=== PATIENT | female | born 1955 | race Caucasian/White ===

== ENCOUNTER 2018-09-24 17:07 | Inpatient (IN) | payer OTHER ==
[~2018-09-24] VITALS: Ht 157.5 cm; Wt 82.6 kg
--- NOTE | 2018-09-24 17:21 | NUR ---
RIGHT SIDED CHEST PAIN X 40 MINUTES ASSOCIATED W/ SOB. PT SATTING AT 98% ON RA. AOX4, AMB, VSS. NO ACUTE DISTRESS NOTED. SKIN WARM TO TOUCH, DRY, INTACT. HOOKED TO MONITIOR AND MADE COMFORTABLE. READY FOR EVAL.
[2018-09-24] MEDS ORDERED: NITROGLYCERIN PACKET 1 GM PACKET ONE (18:23)
[2018-09-24] MEDS ORDERED: ASPIRIN 325 MG TABLET ONE (18:24)
[2018-09-24] MEDS ORDERED: NITROGLYCERIN PACKET 1 GM PACKET TD ONE (18:30)
[2018-09-24] MEDS ORDERED: ASPIRIN 325 MG TABLET PO ONE (18:30)
[2018-09-24 18:35] LABS: BASOPHILS # (AUTO) 0.1 /CMM (0.0-0.2); BASOPHILS % (AUTO) 0.9 % (0.0-2.0); EOSINOPHILS % (AUTO) 0.4 % (0.0-6.0); HEMATOCRIT 43 % (33-45); LYMPHOCYTES # (AUTO) 2.7 /CMM (0.8-4.8); LYMPHOCYTES % (AUTO) 25.1 % (20.0-44.0); MEAN CORPUSCULAR HGB CONC 35 g/dl (31.0-36.0); MEAN CORPUSCULAR VOLUME 97 fL (82-100); MONOCYTES # (AUTO) 0.6 /CMM (0.1-1.30); MONOCYTES % (AUTO) 5.8 % (2.0-12.0); NEUTROPHILS # (AUTO) 7.2 /CMM (1.8-8.9); NEUTROPHILS % (AUTO) 67.8 % (43.0-81.0); PLATELET COUNT (AUTO) 232 /CMM (150-450); RED BLOOD CELL COUNT(AUTO) 4.47 MIL/uL (4.0-5.2); WHITE BLOOD COUNT (AUTO) 10.7 K/uL (4.3-11.0)
[2018-09-24 18:44] LABS: CALCIUM, SERUM 8.8 mg/dL (8.5-10.1); CARBON DIOXIDE 32 mmol/L (21-32); CHLORIDE 105 mmol/L (98-107); CREATININE 0.8 mg/dL (0.6-1.3); GLUCOSE 105 mg/dL (74-106); POTASSIUM 4.4 mmol/L (3.5-5.1); SODIUM SERUM 141 mmol/L (136-145); UREA NITROGEN, BLOOD 17 mg/dL (7-18)
[2018-09-24 18:56] LABS: ALANINE AMINOTRANSFERASE 90 U/L (12-78); ALBUMIN 3.9 g/dL (3.4-5.0); ALKALINE PHOSPHATASE 89 U/L (46-116); ASPARTATE AMINOTRANSFERASE 100 U/L (15-37); B-TYPE NATRIURETIC PEPTIDE 19 PG/ML (0-125); BILIRUBIN,DIRECT 0.4 mg/dL (0.0-0.2); BILIRUBIN,TOTAL 0.9 mg/dL (0.2-1.0); TOTAL PROTEIN, SERUM 7.2 g/dL (6.4-8.2)
[2018-09-24 19:03] LABS: D-DIMER 0.19 mg/L(FEU (0.17-0.50)
--- NOTE | 2018-09-24 19:04 | NUR ---
Patient is resting comfortably in bed with eyes closed. Easily aroused. VSS
--- NOTE | 2018-09-24 19:23 | NUR ---
TURNED IN MOVE SHEET
--- NOTE | 2018-09-24 19:58 | NUR ---
TELE 308-9
--- NOTE | 2018-09-24 20:24 | NUR ---
REPORT GIVEN TO RN FOR 308-1 TELE
[2018-09-24 20:55] VITALS: BP 104/67
--- NOTE | 2018-09-24 20:55 | NUR ---
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
[2018-09-24] MEDS ORDERED: MAG HYDROX/AL HYDROX/SIMETH 30 ML UDC PO PRN (21:00)
[2018-09-24] MEDS ORDERED: ACETAMINOPHEN 325 MG TABLET PO PRN (21:00)
[2018-09-24] MEDS ORDERED: ZOLPIDEM TARTRATE 5 MG TABLET PO PRN (21:00)
[2018-09-24] MEDS ORDERED: MAGNESIUM HYDROXIDE 30 ML UDC PO PRN (21:00)
[2018-09-24] MEDS ORDERED: ALBUTEROL FS 2.5 MG/0.5 ML VIAL.NEB NEB PRN (21:00)
[2018-09-24] MEDS ORDERED: Z GUARD REMEDY 2 OZ OINT TP PRN (21:00)
[2018-09-24] MEDS ORDERED: ONDANSETRON HCL/PF 4 MG/2 ML VIAL IVP PRN (21:00)
[2018-09-24] MEDS ORDERED: NITROGLYCERIN 0.4 MG/TAB BOTTLE SL PRN (21:00)
--- NOTE | 2018-09-24 21:00 | NUR ---
PT TRANSFERRED TO FLOOR VIA [facility]
[2018-09-24 21:48] VITALS: BP 104/67
--- NOTE | 2018-09-24 22:00 | NUR ---
MS RN NOTES PATIENT WANTS TO GO DOWN TO SMOKE.EXPLAINED RISK OF SMOKING WHEN SHE CAME FOR CHEST PAIN,PATIENT UNDERSTAND.CLAIMED SHE'S HUNGRY,OFFERS TUNA SANDWICH AND APPLE JUICE,TAKEN WELL.NO VOMITING NOTED.
[2018-09-24] MEDS: IV NS 0.9% 1,000 ML IV PRN (22:39)
--- NOTE | 2018-09-24 22:39 | NUR ---
ELECTROPLATER NOTES STARTED ON IV NS AT 75ML/HR RATE ORDERED
[2018-09-24] MEDS: HYDROCODONE/APAP 5/325MG 1 EACH TABLET PO PRN (22:49)
--- NOTE | 2018-09-24 22:49 | NUR ---
MS RN NOTES C/O PAIN ON BACK OF HER NECK 6/10 ON PAIN SCALE.MEDICATED WITH NORCO 5/325MG,1 TAB PO ORDERED.
[2018-09-25 00:07] VITALS: BP 118/69
[2018-09-25 04:04] VITALS: BP 118/71
--- NOTE | 2018-09-25 06:16 | NUR ---
DIRECTOR INSTRUMENTATION NOTES SR 74 ON TELE MONITOR.DENIES CHEST PAIN NO N/V NOTED/NECK PAIN IMPROVED FORM NORCO.INSTRUCTED BREAKFAST TO BE HELD 'TILL SEEN BY DR RASCON FOR CARDIO CONSULT.CALL LIGHT IN REACH,NEEDS ATTENDED.WILL ENDORSE TO DAY NURSE FOR BATSHEVA.
[2018-09-25 06:44] LABS: BASOPHILS % (AUTO) 0.6 % (0.0-2.0); CALCIUM, SERUM 8.3 mg/dL (8.5-10.1); CREATININE 0.7 mg/dL (0.6-1.3); HEMATOCRIT 40 % (33-45); HEMOGLOBIN 13.7 g/dL (11.5-14.8); LYMPHOCYTES # (AUTO) 2.7 /CMM (0.8-4.8); LYMPHOCYTES % (AUTO) 45.5 % (20.0-44.0); MAGNESIUM 1.8 mg/dL (1.8-2.4); MEAN CORPUSCULAR HGB CONC 35 g/dl (31.0-36.0); MEAN CORPUSCULAR VOLUME 97 fL (82-100); MONOCYTES # (AUTO) 0.4 /CMM (0.1-1.30); MONOCYTES % (AUTO) 7.5 % (2.0-12.0); NEUTROPHILS # (AUTO) 2.7 /CMM (1.8-8.9); NEUTROPHILS % (AUTO) 45.4 % (43.0-81.0); PHOSPHORUS 4.4 mg/dL (2.5-4.9); PLATELET COUNT (AUTO) 226 /CMM (150-450); RED BLOOD CELL COUNT(AUTO) 4.09 MIL/uL (4.0-5.2); WHITE BLOOD COUNT (AUTO) 5.9 K/uL (4.3-11.0)
[2018-09-25 06:54] LABS: THYROID STIMULATING HORMONE 2.085 uIU/mL (0.358-3.74)
--- NOTE | 2018-09-25 07:30 | NUR ---
Tele/RN - Assessment Patient awake, A/O x 4, no complaints overnight, denies chest pain at this time, no apparent distress noted, afebrile, stable on room air. Tele shows SR, pending cardiac consult, placed on NPO for now for possible cardiac testing. IVF NS at 75 ml/hr infusing well on the RAC with no signs of infiltration. Labs reviewed, WNL. Skin is intact. Patient is ambulatory with steady gait. Patient educated on plan of care. Will continue with current medical management.
[2018-09-25] MEDS: PANTOPRAZOLE 40 MG TABLET.DR PO SCH (07:49)
[2018-09-25 08:00] VITALS: BP 110/70
[2018-09-25] MEDS: ASPIRIN 81 MG TAB.CHEW PO SCH (08:17)
[2018-09-25] MEDS: NICOTINE PATCH (14MG) 14 MG PATCH.TD24 TD SCH (08:17)
--- NOTE | 2018-09-25 09:05 | NUR ---
Tele/RN - Cardiac consult Seen and examined by kia Marie to give breakfast, dc tele monitoring, transfer to med-surg.
[2018-09-25] MEDS: ATORVASTATIN 10 MG TABLET PO SCH (09:32)
[2018-09-25] MEDS: METOPROLOL TARTRATE 50 MG TABLET PO SCH ×2 (11:45→17:07)
[2018-09-25] MEDS: IV NS 0.9% 1,000 ML IV PRN ×2 (14:54→22:22)
[2018-09-25 16:00] VITALS: BP 138/58
--- NOTE | 2018-09-25 18:19 | NUR ---
MS/RN - End of shift summary No significant change in condition seen, denies chest pain, not in any form of distress. Will endorse to night nurse accordingly.
--- NOTE | 2018-09-25 19:25 | NUR ---
RN OPEN NOTES RECEIVED PATIENT AWAKE IN BED WITH FAMILY AT BEDSIDE. A/O X4. NO SIGNS OF DISTRESS OR DISCOMFORT. BREATHING EVEN AND UNLABORED. DENIES ANY CHEST PAIN. IV ACCESS IN RAC, PATENT AND INTACT, NO SIGNS OF REDNESS OR INFILTRATION. PATIENT REFUSING IVF'S X3 AT THIS TIME. STATES SHES DRINKING ENOUGH FLUIDS ORALLY. BED IN LOW LOCKED POSITION WITH SIDE RAILS X2. CALL LIGHT WITHIN REACH. WILL CONTINUE TO MONITOR.
[2018-09-25 20:00] VITALS: BP 98/61
[2018-09-25] MEDS: HYDROCODONE/APAP 5/325MG 1 EACH TABLET PO PRN (20:38)
[2018-09-25] MEDS: MORPHINE SULFATE INJ 2 MG/ML DISP.SYRIN IV PRN (22:23)
--- NOTE | 2018-09-25 22:23 | NUR ---
RN NOTES ADMINISTERED MORPHINE 2MG ORDERED AT PATIENT REQUEST FOR NECK, HEAD AND MOUTH PAIN 5/10. VSS. WILL CONTINUE TO MONITOR.
[2018-09-26] MEDS: METOPROLOL TARTRATE 50 MG TABLET PO SCH ×4 (06:00→18:00)
--- NOTE | 2018-09-26 06:49 | NUR ---
RN CLOSING NOTES PATIENT RESTING IN BED, EASILY AROUSABLE. . A/O X4. NO SIGNS OF DISTRESS OR DISCOMFORT. BREATHING EVEN AND UNLABORED. DENIES ANY CHEST PAIN. IV ACCESS IN RAC, PATENT AND INTACT, NO SIGNS OF REDNESS OR INFILTRATION. ALL NEEDS MET. NO SIGNIFICANT CHANGES THROUGH THE NIGHT. BED IN LOW LOCKED POSITION WITH SIDE RAILS X2. CALL LIGHT WITHIN REACH. WILL ENDORSE TO AM SHIFT FOR BATSHEVA.
--- NOTE | 2018-09-26 07:29 | NUR ---
MS RN OPENING NOTES RECEIVED PT SITTING UP IN BED. A/O X4, AFEBRILE. RESPIRATIONS ARE EVEN AND UNLABORED, NOT IN ANY ACUTE DISTRESS NOTED. PT DENIES ANY PAIN AT THIS TIME, NO C/O SOB, N/V. IV SITE RAC INTACT, NO INFILTRATION NOTED. DRESSING KEPT CLEAN AND DRY. INSTRUCTED PT TO USE CALL LIGHT WHEN ASSISTANCE IS NEEDED, CALL LIGHT IS LEFT WITHIN REACH. WILL MONITOR THROUGHOUT SHIFT FOR CONTINUITY OF CARE.
[2018-09-26 08:00] VITALS: BP_SYST 111; BP_SYST 137; BP_DIAS 68
[2018-09-26] MEDS: ASPIRIN 81 MG TAB.CHEW PO SCH (08:17)
[2018-09-26] MEDS: NICOTINE PATCH (14MG) 14 MG PATCH.TD24 TD SCH (08:17)
[2018-09-26] MEDS: ATORVASTATIN 10 MG TABLET PO SCH (08:17)
[2018-09-26] MEDS: PANTOPRAZOLE 40 MG TABLET.DR PO SCH (08:17)
--- NOTE | 2018-09-26 10:15 | NUR ---
MS RN NOTES-- CALLED RADIOLOGY FOR [facility] SCHEDULE AND STATED "AROUND 3PM." PT IS AWARE.
[2018-09-26] MEDS: MORPHINE SULFATE INJ 2 MG/ML DISP.SYRIN IV PRN (12:52)
[2018-09-26] MEDS ORDERED: IV NS 0.9% 500 ML IV PRN (15:30)
[2018-09-26] MEDS ORDERED: NITROGLYCERIN 4.9 GM SPRAY SL ONE (15:30)
[2018-09-26] MEDS ORDERED: METOPROLOL TARTRATE INJ 5 MG/5 ML AMPUL IVP ONE (15:30)
[2018-09-26] MEDS ORDERED: METOPROLOL TARTRATE INJ 5 MG/5 ML AMPUL ONE (15:44)
[2018-09-26] MEDS ORDERED: IOHEXOL-350 100 ML VIAL IV ONE (15:48)
--- NOTE | 2018-09-26 15:48 | NUR ---
MS CHIN NOTES-- PT P/U BY RADIOLOGY FOR [facility] IN STABLE CONDITION VIA W/C.
[2018-09-26 16:00] VITALS: BP 106/58
[2018-09-26] MEDS ORDERED: IV NS 0.9% 500 ML IV ONE (16:06)
--- NOTE | 2018-09-26 16:35 | NUR ---
ICU/RN: S/P CTA; pt tolerated procedure well. No metoprolol doses given; HR within parameters. Nitroglycerin administered as ordered per protocol. Assisted pt to bathroom and bed. Fall precautions observed. Bedside report given to primary RN for BATSHEVA.
[2018-09-26] MEDS: HYDROCODONE/APAP 5/325MG 1 EACH TABLET PO PRN ×2 (16:38→22:28)
--- NOTE | 2018-09-26 16:43 | NUR ---
MS RN NOTES-- PT CAME BACK FROM [facility] IN STABLE CONDITION VIA W/C. NO NEW SKIN ISSUES NOTED. AWAITING RESULTS TO BE READ. PT MADE AWARE.
--- NOTE | 2018-09-26 18:06 | NUR ---
MS GIUSEPPE NOTES-- PASSED BY PT'S ROOM AND PT SAID "HELP." PT WAS FOUND ON HER KNEES IN FRONT OF THE BATHROOM SINK. ASKED PT WHAT HAD HAPPENED, PT STATED "I WENT TO USE TO THE BATHROOM AND I FELT A LITTLE DIZZY AND I LOWERED MYSELF TO THE GROUND TO PREVENT MYSELF FROM FALLING." ASSISTED PT TO BED, PT ABLE TO AMBULATE. SKIN REMAINS INTACT, DENIES ANY PAIN. PT STATED "I JUST FELT DIZZY, I DIDNT FALL. I WANTED TO PREVENT MYSELF FROM FALLING SO I LOWERED MYSELF ON MY KNEES." PT IN BED WITH LIGHTS OFF AND RESTING AT THIS TIME. CHARGE NURSE NOTIFIED. Addendum: 09/26/18 at 1826 by SAI GREENBERG RN BP 118/67 HR 53
[2018-09-26 18:25] VITALS: BP 118/67
--- NOTE | 2018-09-26 18:52 | NUR ---
MS RN CLOSING NOTES ALL DUE MEDS GIVEN, NEEDS MET AND RENDERED. PT IS A/O X4, AFEBRILE. RESPIRATIONS ARE EVEN AND UNLABORED, NOT IN ANY ACUTE DISTRESS NOTED. PT DENIES ANY PAIN AT THIS TIME, NO C/O SOB, N/V. IV SITE TO RAC INTACT, NO INFILTRATION NOTED. DRESSING KEPT CLEAN AND DRY. DENIES ANY DIZZINESS AT THIS TIME. REMINDED PT TO USE CALL LIGHT WHEN ASSISTANCE IS NEEDED, CALL LIGHT IS LEFT WITHIN REACH. WILL ENDORSE TO NEXT SHIFT FOR CONTINUITY OF CARE.
--- NOTE | 2018-09-26 19:10 | NUR ---
MS RN NOTES RECEIVED PT IN BED AWAKE AND ABLE TO MAKE NEEDS KNOWN WITH FAMILY AT BEDSIDE. PT A/O X4. RESPIRATIONS EVEN AND UNLABORED WITH NO S/S OF ACUTE DISTRESS OR SOB NOTED. PT DENIES PAIN AT THIS TIME. IV IN RAC #20G PATENT AND INTACT RUNNING NS@75ML/HR. BED IN LOWEST LOCKED POSITION WITH SIDE RAILS UP X3. CALL LIGHT WITHIN REACH. WILL CONTINUE TO MONITOR.
[2018-09-26 20:00] VITALS: BP 118/71
[2018-09-27] MEDS: METOPROLOL TARTRATE 50 MG TABLET PO SCH ×3 (00:09→12:19)
[2018-09-27] MEDS: HYDROCODONE/APAP 5/325MG 1 EACH TABLET PO PRN (03:56)
--- NOTE | 2018-09-27 07:26 | NUR ---
MS RN NOTES PT IN BED ASLEEP BUT EASILY AWOKEN VERBALLY OR BY TOUCH. PT A/O X4 AND ABLE TO MAKE NEEDS KNOWN. RESPIRATIONS EVEN AND UNLABORED WITH NO S/S OF ACUTE DISTRESS OR SOB NOTED THROUGHOUT SHIFT. PT DENIES PAIN AT THIS TIME. IV IN RAC #20G PATENT AND INTACT RUNNING NS@75ML/HR. BED IN LOWEST LOCKED POSITION WITH SIDE RAILS UP X2. CALL LIGHT WITHIN REACH. WILL ENDORSE TO ONCOMING NURSE FOR BATSHEVA.
--- NOTE | 2018-09-27 07:45 | NUR ---
M/S RN OPENING NOTES RECEIVED PATIENT ON BED, A/OX4 AND ABLE TO MAKE NEEDS KNOWN. RESPONSIVE TO ALL STIMULI. RESPIRATION EVEN AND NON LABORED WITH NO ACUTE RESPIRATORY DISTRESS. ABDOMEN SOFT AND NON DISTENDED WITH ACTIVE BOWEL SOUNDS, CONTINENT B&B WITH BRP. SKIN WARM TO TOUCH AND DRY. DENIES PAIN AND DISCOMFORT. IV SITE AT RIGHT AC WITH NO S/SX OF INFILTRATION. NS RUNNING AT 75 ML/HR. GOAL FOR DISCHARGE TODAY PATIENT STATED. ALL CONCERNS ADDRESSED. PLACED CALL LIGHT WITHIN REACH FOR SAFETY. WILL CONTINUE TO EVALUATE CARE.
[2018-09-27 08:00] VITALS: BP 98/44
[2018-09-27] MEDS: NICOTINE PATCH (14MG) 14 MG PATCH.TD24 TD SCH (08:08)
[2018-09-27] MEDS: ASPIRIN 81 MG TAB.CHEW PO SCH (08:08)
[2018-09-27] MEDS: PANTOPRAZOLE 40 MG TABLET.DR PO SCH (08:08)
[2018-09-27] MEDS: ATORVASTATIN 10 MG TABLET PO SCH (08:08)
[2018-09-27 09:11] LABS: ALBUMIN 3.3 g/dL (3.4-5.0); BILIRUBIN,TOTAL 0.4 mg/dL (0.2-1.0); CALCIUM, SERUM 8.4 mg/dL (8.5-10.1); CREATININE 0.8 mg/dL (0.6-1.3); TOTAL PROTEIN, SERUM 6.3 g/dL (6.4-8.2)
[2018-09-27 12:19] VITALS: BP 136/49
[2018-09-27] MEDS ORDERED: ASPI-1169 PO (12:20)
[2018-09-27] MEDS ORDERED: LOSA50TA3 PO (12:20)
[2018-09-27] MEDS ORDERED: ATOR10TA PO (12:20)
--- NOTE | 2018-09-27 13:05 | NUR ---
M/S MEDICAL PATHOLOGIST NOTES PATIENT DISCHARGED TO HOME WITH STABLE CONDITION. EXIT CARE PROVIDED WITH PRESCRIPTION GIVEN ORDERED. REMAINED A/0 X 4 AND ABLE TO MAKE NEEDS KNOWN. ASSESSED NO ACUTE RESPIRATORY DISTRESS. SKIN REMAINED INTACT AND DRY, REFUSED PICTURES TO BE TAKEN PER HOSPITAL POLICY STATED " THERE'S NOTING NEW ANYWAY". ADVISED REASON FOR PROCEDURE AN STILL REFUSED. IV SITE TAKEN OFF AND ID BACK AND VERBALIZED UNDERSTANDING. ALL CONCERNS ADDRESSED. WHEELED BY CHANTEL STALLINGS TO PRIVATE CAR WITH ROOM MATE SAFELY.
== END 2018-09-27 13:10 | disposition home or self-care (01) | DRG 203 ==
LOC: ER 17:16 → TELE 20:27 → MED 09-25 10:15
PROVIDERS: ADMIT Nurse Practitioner Acute Care; ATTEND Nurse Practitioner Acute Care
DX: M94.0 Chondrocostal junction syndrome [Tietze] (principal); E66.9 Obesity, unspecified; F41.0 Panic disorder [episodic paroxysmal anxiety]; J45.909 Unspecified asthma, uncomplicated; K21.9 Gastro-esophageal reflux disease without esophagitis; Z68.34 Body mass index [BMI] 34.0-34.9, adult; F17.200 Nicotine dependence, unspecified, uncomplicated; Z90.49 Acquired absence of other specified parts of digestive tract; F41.9 Anxiety disorder, unspecified
CPT/HCPCS: 36415; 71045-TC; 75574; 76700-TC; 80048-TC; 80053-TC; 80061-TC; 80076-TC; 83735-TC; 83880; 84100-TC; 84443-TC; 84484-TC; 85025-TC; 85378-TC; 85730-TC; 87081-TC; 93307-TC; G0378; J2270; J3490; J7030; J7040; Q9967

== ENCOUNTER 2018-12-14 23:40 | Emergency (ER) | payer OTHER ==
[~2018-12-14] VITALS: Ht 160 cm; Wt 82.6 kg
[~2018-12-14 23:40] MED LIST: ASPI-1169 PO; ATOR10TA PO; LOSA50TA3 PO
--- NOTE | 2018-12-15 02:19 | NUR ---
BIBSELF FROM HOME. TO ER BED 10. AAOX4. NAD NOTED, BREATHING EVEN AND UNLABORED. AMBUALTORY. C.O VAGINAL PAIN AND LOWER ABD PAIN X 1 WEEK. PAIN IS 7/10 CRAMPING OCCASSIONAL SHARP THROBBING PAIN. PT REPORTS BROWNISH THINS NO ODOR DISCHARGE. PT REPORTS USING MONISTAT BUT NO RELIEF. URINE COLLECTED FROM PT. AND SENT TO LAB. AWAITING MD FOR KRISTEL
[2018-12-15 02:36] LABS: APPEARANCE,URINE TURBID (CLEAR); BILIRUBIN,URINE NEGATIVE (NEGATIVE); BLOOD, URINE 3+ Ery/uL (NEGATIVE); COLOR,URINE YELLOW (YELLOW); KETONES,URINE NEGATIVE (NEGATIVE); LEUKOCYTE ESTERASE ,URINE 1+ (NEGATIVE); NITRITE, URINE NEGATIVE (NEGATIVE); PH,URINE 5.5 (5.0-8.0); PROTEIN,URINE 1+ mg/dl (NEGATIVE); UGLUCOSE NEGATIVE (NEGATIVE); UROBILINOGEN,URINE 0.2 EU/dL (0.2)
[2018-12-15 02:49] LABS: BACTERIA,URINE Few /HPF (None Seen); SQUAMOUS EPITHELIAL CELL,UR Few /HPF (None Seen); WBC,URINE TOO NUMEROUS TO COUN /HPF (0-3)
[2018-12-15 02:49] LABS: BASOPHILS # (AUTO) 0.1 /CMM (0.0-0.2); BASOPHILS % (AUTO) 1.1 % (0.0-2.0); EOSINOPHILS % (AUTO) 0.9 % (0.0-6.0); HEMATOCRIT 42 % (33-45); HEMOGLOBIN 14.1 g/dL (11.5-14.8); LYMPHOCYTES # (AUTO) 3.7 /CMM (0.8-4.8); LYMPHOCYTES % (AUTO) 36.9 % (20.0-44.0); MEAN CORPUSCULAR HGB CONC 34 g/dl (31.0-36.0); MEAN CORPUSCULAR VOLUME 97 fL (82-100); MONOCYTES # (AUTO) 0.7 /CMM (0.1-1.30); MONOCYTES % (AUTO) 6.5 % (2.0-12.0); NEUTROPHILS # (AUTO) 5.5 /CMM (1.8-8.9); NEUTROPHILS % (AUTO) 54.6 % (43.0-81.0); PLATELET COUNT (AUTO) 242 /CMM (150-450); RED BLOOD CELL COUNT(AUTO) 4.35 MIL/uL (4.0-5.2); WHITE BLOOD COUNT (AUTO) 10.1 K/uL (4.3-11.0)
[2018-12-15 03:06] LABS: ALBUMIN 3.3 g/dL (3.4-5.0); BILIRUBIN,DIRECT 0.1 mg/dL (0.0-0.2); BILIRUBIN,TOTAL 0.2 mg/dL (0.2-1.0); CALCIUM, SERUM 8.9 mg/dL (8.5-10.1); CREATININE 0.8 mg/dL (0.6-1.3); TOTAL PROTEIN, SERUM 6.6 g/dL (6.4-8.2)
[2018-12-15 03:14] LABS: POTASSIUM 3.8 mmol/L (3.5-5.1)
[2018-12-15] MEDS ORDERED: FLUCONAZOLE (100 MG) 100 MG TABLET PO ONE (04:30)
[2018-12-15] MEDS ORDERED: CEFTRIAXONE 1GM BAG (ER ONLY) 1 GM/50 ML PIGGYBACK IV ONE (04:30)
[2018-12-15] MEDS ORDERED: CEFTRIAXONE 1 G VIAL IM ONE (04:30)
[2018-12-15] MEDS ORDERED: IBUPROFEN 600 MG TABLET PO ONE ×2 (04:30→04:41)
[2018-12-15] MEDS ORDERED: LIDOCAINE /MPF 1% VIAL 5 ML VIAL ONE (04:41)
[2018-12-15] MEDS ORDERED: CEFTRIAXONE 1 G VIAL ONE (04:41)
[2018-12-15] MEDS ORDERED: FLUCONAZOLE (100 MG) 100 MG TABLET ONE ×2 (04:41→04:45)
--- NOTE | 2018-12-15 04:55 | NUR ---
Patient discharged to home in stable condition. Written and verbal after care instructions given. Patient verbalizes understanding of instruction. Pt ambulatory with a steady gait
[2018-12-15 04:56] VITALS: BP 157/94
== END 2018-12-15 05:05 | disposition home or self-care (01) ==
LOC: ER 23:43
DX: R10.2 Pelvic and perineal pain (principal); N39.0 Urinary tract infection, site not specified; N89.8 Other specified noninflammatory disorders of vagina; J45.909 Unspecified asthma, uncomplicated; F41.9 Anxiety disorder, unspecified; F32.9 Major depressive disorder, single episode, unspecified; F10.10 Alcohol abuse, uncomplicated; F17.200 Nicotine dependence, unspecified, uncomplicated; Y90.9 Presence of alcohol in blood, level not specified; Z79.82 Long term (current) use of aspirin; Z98.890 Other specified postprocedural states
CPT/HCPCS: 36415; 76856; 80048; 80076; 81001; 85025; 87077; 87086; 87186; 87210; 87491; 87591; 96372; 99284; J0696; J3490; 81000-TC

== ENCOUNTER 2019-01-26 17:24 | Emergency (ER) | payer OTHER ==
[~2019-01-26] VITALS: Ht 157.5 cm; Wt 81.6 kg
--- NOTE | 2019-01-26 17:40 | NUR ---
C/O "FEEL SICK, NAUSEA, HEADACHE X 4 DAYS" PATIENT A/OX4, AMBULATORY, AFEBRILE, NO SOB NOTED. NEEDS ATTENDED, ATTACHED TO THE MONITOR. MD AT BEDSIDE FOR EVAL.
[2019-01-26] MEDS ORDERED: ONDANSETRON HCL/PF 4 MG/2 ML VIAL ONE (17:57)
[2019-01-26] MEDS ORDERED: KETOROLAC TROMETHAMINE 15 MG/ML VIAL ONE (17:57)
[2019-01-26] MEDS ORDERED: LORAZEPAM INJ 2 MG/ML VIAL ONE (17:58)
[2019-01-26] MEDS ORDERED: KETOROLAC TROMETHAMINE INJ 30 MG/ML VIAL IV ONE (18:00)
[2019-01-26] MEDS ORDERED: ONDANSETRON HCL/PF 4 MG/2 ML VIAL IVP ONE (18:00)
[2019-01-26] MEDS ORDERED: IV NS 0.9% 1,000 ML BAG IV ONE (18:00)
[2019-01-26] MEDS ORDERED: LORAZEPAM INJ 2 MG/ML VIAL IV ONE (18:00)
[2019-01-26 18:06] LABS: BASOPHILS # (AUTO) 0.1 /CMM (0.0-0.2); BASOPHILS % (AUTO) 0.8 % (0.0-2.0); EOSINOPHILS % (AUTO) 0.2 % (0.0-6.0); HEMATOCRIT 43 % (33-45); HEMOGLOBIN 14.7 g/dL (11.5-14.8); LYMPHOCYTES % (AUTO) 22.4 % (20.0-44.0); MEAN CORPUSCULAR HGB CONC 34 g/dl (31.0-36.0); MEAN CORPUSCULAR VOLUME 97 fL (82-100); MONOCYTES # (AUTO) 1.1 /CMM (0.1-1.30); MONOCYTES % (AUTO) 8.1 % (2.0-12.0); NEUTROPHILS % (AUTO) 68.5 % (43.0-81.0); PLATELET COUNT (AUTO) 338 /CMM (150-450); RED BLOOD CELL COUNT(AUTO) 4.47 MIL/uL (4.0-5.2); WHITE BLOOD COUNT (AUTO) 13.2 K/uL (4.3-11.0)
[2019-01-26 18:08] LABS: APPEARANCE,URINE Clear (CLEAR); BILIRUBIN,URINE Negative (NEGATIVE); BLOOD, URINE Negative Ery/uL (NEGATIVE); COLOR,URINE Yellow (YELLOW); KETONES,URINE Negative (NEGATIVE); LEUKOCYTE ESTERASE ,URINE Small (NEGATIVE); NITRITE, URINE Negative (NEGATIVE); PROTEIN,URINE Negative (NEGATIVE); UGLUCOSE Negative (NEGATIVE); UROBILINOGEN,URINE 0.2 EU/dL (0.2)
[2019-01-26 18:12] LABS: CREATININE 0.8 mg/dL (0.6-1.3); POTASSIUM 3.9 mmol/L (3.5-5.1)
[2019-01-26 18:18] LABS: ALBUMIN 3.6 g/dL (3.4-5.0); BILIRUBIN,DIRECT 0.2 mg/dL (0.0-0.2); BILIRUBIN,TOTAL 0.5 mg/dL (0.2-1.0)
[2019-01-26 18:51] LABS: BACTERIA,URINE Few /HPF (None Seen); RBC,URINE 0-2 /HPF (0-2); SQUAMOUS EPITHELIAL CELL,UR Moderate /HPF (None Seen); URINE AMORPHOUS URATE Few /HPF (None Seen)
[2019-01-26] MEDS ORDERED: CEFTRIAXONE 1GM BAG (ER ONLY) 50 ML IV ONE (18:58)
[2019-01-26] MEDS ORDERED: CEFTRIAXONE 1GM BAG (ER ONLY) 1 GM/50 ML PIGGYBACK IV ONE (19:00)
[2019-01-26 19:31] VITALS: BP 127/79
--- NOTE | 2019-01-26 19:32 | NUR ---
Patient discharged to home in stable condition. Written and verbal after care instructions given. Patient verbalizes understanding of instruction.IV removed. Catheter intact and site benign. Pressure and 4x4 applied to site. No bleeding noted.
== END 2019-01-26 19:33 | disposition home or self-care (01) ==
LOC: ER 17:29
DX: J18.9 Pneumonia, unspecified organism (principal); R11.0 Nausea; N39.0 Urinary tract infection, site not specified; R53.81 Other malaise; R06.00 Dyspnea, unspecified; D72.829 Elevated white blood cell count, unspecified; K21.9 Gastro-esophageal reflux disease without esophagitis; F41.9 Anxiety disorder, unspecified; J45.909 Unspecified asthma, uncomplicated; R00.0 Tachycardia, unspecified; F32.9 Major depressive disorder, single episode, unspecified; F10.10 Alcohol abuse, uncomplicated; F17.200 Nicotine dependence, unspecified, uncomplicated; Y90.9 Presence of alcohol in blood, level not specified; Z98.890 Other specified postprocedural states; Z79.82 Long term (current) use of aspirin
CPT/HCPCS: 36415; 71045; 80048; 80076; 81001; 83690; 85025; 87086; 93005; 96374; 96375; 99284; 99406; J0696; J1885; J2060; J2405; J7030; 81000-TC

== ENCOUNTER 2020-10-30 23:42 | Emergency (ER) | payer MEDICARE, OTHER ==
[~2020-10-30] VITALS: Ht 157.5 cm; Wt 81.6 kg
[2020-10-31 00:08] LABS: BASOPHILS # (AUTO) 0.1 /CMM (0.0-0.2); BASOPHILS % (AUTO) 1.1 % (0.0-2.0); EOSINOPHILS % (AUTO) 1.3 % (0.0-6.0); HEMATOCRIT 41 % (33-45); LYMPHOCYTES # (AUTO) 3.5 /CMM (0.8-4.8); LYMPHOCYTES % (AUTO) 39.4 % (20.0-44.0); MEAN CORPUSCULAR HGB CONC 34 g/dl (31.0-36.0); MEAN CORPUSCULAR VOLUME 98 fL (82-100); MONOCYTES # (AUTO) 0.5 /CMM (0.1-1.30); MONOCYTES % (AUTO) 5.8 % (2.0-12.0); NEUTROPHILS # (AUTO) 4.7 /CMM (1.8-8.9); NEUTROPHILS % (AUTO) 52.4 % (43.0-81.0); PLATELET COUNT (AUTO) 248 /CMM (150-450); RED BLOOD CELL COUNT(AUTO) 4.21 MIL/uL (4.0-5.2); WHITE BLOOD COUNT (AUTO) 8.9 K/uL (4.3-11.0)
[2020-10-31 00:17] LABS: CALCIUM, SERUM 8.6 mg/dL (8.5-10.1); CARBON DIOXIDE 31 mmol/L (21-32); CHLORIDE 106 mmol/L (98-107); CREATININE 0.7 mg/dL (0.6-1.3); GLUCOSE 116 mg/dL (74-106); POTASSIUM 3.8 mmol/L (3.5-5.1); SODIUM SERUM 141 mmol/L (136-145); UREA NITROGEN, BLOOD 10 mg/dL (7-18)
[2020-10-31] MEDS ORDERED: ALBUTEROL FS 2.5 MG/3 ML VIAL.NEB NEB ONE (00:30)
[2020-10-31] MEDS ORDERED: IPRATROPIUM NEB FS 0.5 MG/2.5 ML AMPUL.NEB NEB ONE (00:30)
[2020-10-31] MEDS ORDERED: IV NS 0.9% 1,000 ML IV ONE (00:30)
[2020-10-31] MEDS ORDERED: predniSONE 20 MG TABLET PO ONE (00:30)
[2020-10-31] MEDS ORDERED: predniSONE 20 MG TABLET ONE (00:33)
[2020-10-31] MEDS ORDERED: IPRATROPIUM NEB FS 0.5 MG/2.5 ML AMPUL.NEB ONE (00:37)
[2020-10-31] MEDS ORDERED: ALBUTEROL FS 2.5 MG/3 ML VIAL.NEB ONE (00:37)
--- NOTE | 2020-10-31 00:40 | NUR ---
RT AT BEDSIDE FOR BREATHING TREATMENT
--- NOTE | 2020-10-31 01:49 | NUR ---
CALLED ED FOR REPORT
--- NOTE | 2020-10-31 02:00 | NUR ---
IV removed. Catheter intact and site benign. Pressure and 4x4 applied to site. No bleeding noted.
--- NOTE | 2020-10-31 02:00 | NUR ---
Patient discharged to home in stable condition. Written and verbal after care instructions given. Patient verbalizes understanding of instruction. Pt ambulated out of ED. VSS.
[2020-10-31 02:05] VITALS: BP 124/76
== END 2020-10-31 02:10 | disposition home or self-care (01) ==
LOC: ER 23:44
DX: J45.909 Unspecified asthma, uncomplicated (principal); F41.9 Anxiety disorder, unspecified; F32.9 Major depressive disorder, single episode, unspecified; Z98.890 Other specified postprocedural states; Z79.899 Other long term (current) drug therapy; Z79.82 Long term (current) use of aspirin
CPT/HCPCS: 36415; 71045; 80048; 83880; 84484; 85025; 93005 ×2; 94640; 96360; 99285; J7030; J7512

== ENCOUNTER 2022-05-13 16:49 | Emergency (ER) | payer OTHER ==
[~2022-05-13] VITALS: Ht 157.5 cm; Wt 81.6 kg
[2022-05-13] MEDS ORDERED: LIDOCAINE 5% (PATCH) 1 EA PATCH TP ONE (17:46)
[2022-05-13] MEDS ORDERED: KETOROLAC TROMETHAMINE INJ 60 MG/2 ML VIAL IM ONE ×2 (17:46→18:00)
[2022-05-13] MEDS ORDERED: LIDOCAINE 5% (PATCH) 1 EA PATCH TP SCH (18:00)
--- NOTE | 2022-05-13 19:37 | NUR ---
Patient discharged to home in stable condition. Written and verbal after care instructions given. Patient verbalizes understanding of instruction.
[2022-05-13 19:38] VITALS: BP 156/78
== END 2022-05-13 19:38 | disposition home or self-care (01) ==
LOC: ER 16:58
DX: R07.81 Pleurodynia (principal); J45.909 Unspecified asthma, uncomplicated; F41.9 Anxiety disorder, unspecified; F17.200 Nicotine dependence, unspecified, uncomplicated; Z79.82 Long term (current) use of aspirin; Z79.899 Other long term (current) drug therapy
CPT/HCPCS: 99284; 96372; 71100; 73030; J1885

== ENCOUNTER 2022-07-10 18:46 | Inpatient (IN) | payer OTHER ==
[~2022-07-10] VITALS: Ht 157.5 cm; Wt 84.8 kg
--- NOTE | 2022-07-10 19:06 | NUR ---
C/O MID UPPER BACK PAIN RADIATING TO CHEST X 1 WEEK, PT TO BED 11, DENIES SOB. NOT IN ACUTE DISTRESS, PENDING ER PROVIDER KRISTEL
--- NOTE | 2022-07-10 20:53 | NUR ---
pt to ct
[2022-07-10] MEDS ORDERED: MORPHINE SULFATE INJ 2 MG/ML DISP.SYRIN IV ONE (21:00)
[2022-07-10] MEDS ORDERED: MORPHINE SULFATE INJ 4 MG/ML DISP.SYRIN ONE (21:05)
--- NOTE | 2022-07-10 21:07 | NUR ---
blood collected sent to lab
[2022-07-10 21:19] LABS: BASOPHILS # (AUTO) 0.1 K/uL (0.0-0.2); BASOPHILS % (AUTO) 0.8 % (0.0-2.0); EOSINOPHILS % (AUTO) 1.3 % (0.0-6.0); HEMATOCRIT 45 % (33-45); HEMOGLOBIN 15.1 g/dL (11.5-14.8); LYMPHOCYTES # (AUTO) 3.3 K/uL (0.8-4.8); LYMPHOCYTES % (AUTO) 34.8 % (20.0-44.0); MEAN CORPUSCULAR HGB CONC 33 g/dl (31.0-36.0); MEAN CORPUSCULAR VOLUME 96 fL (82-100); MONOCYTES # (AUTO) 0.7 K/uL (0.1-1.30); MONOCYTES % (AUTO) 7.2 % (2.0-12.0); NEUTROPHILS # (AUTO) 5.3 K/uL (1.8-8.9); NEUTROPHILS % (AUTO) 55.9 % (43.0-81.0); PLATELET COUNT (AUTO) 275 K/uL (150-450); RED BLOOD CELL COUNT(AUTO) 4.72 MIL/uL (4.0-5.2); WHITE BLOOD COUNT (AUTO) 9.5 K/uL (4.3-11.0)
[2022-07-10 21:47] LABS: ALBUMIN 3.7 g/dL (3.4-5.0); BILIRUBIN,DIRECT 0.1 mg/dL (0.0-0.2); BILIRUBIN,TOTAL 0.3 mg/dL (0.2-1.0); CREATININE 0.8 mg/dL (0.6-1.3); POTASSIUM 3.8 mmol/L (3.5-5.1); TOTAL PROTEIN, SERUM 7.5 g/dL (6.4-8.2)
[2022-07-10 22:18] LABS: BILIRUBIN,URINE 1+ (NEGATIVE); COLOR,URINE YELLOW (YELLOW); LEUKOCYTE ESTERASE ,URINE TRACE (NEGATIVE); NITRITE, URINE NEGATIVE (NEGATIVE); PH,URINE 5.5 (5.0-8.0); PROTEIN,URINE 1+ mg/dl (NEGATIVE); UGLUCOSE NEGATIVE (NEGATIVE)
[2022-07-10 22:33] LABS: BACTERIA,URINE Moderate /HPF (None Seen); RBC,URINE 21-50 /HPF (0-2); SQUAMOUS EPITHELIAL CELL,UR Few /HPF (None Seen); URINE AMORPHOUS URATE Many /HPF (None Seen)
[2022-07-10] MEDS ORDERED: CEFTRIAXONE 1GM BAG (ER ONLY) 1 GM/50 ML PIGGYBACK IV ONE (23:00)
[2022-07-10] MEDS ORDERED: IV NS 0.9% 250 ML IV ONE (23:06)
[2022-07-10] MEDS ORDERED: CT SWABBABLE VALVE TRANS SET 1 EA INFUS.SET MC ONE (23:06)
[2022-07-10] MEDS ORDERED: IOHEXOL-300 100 ML VIAL IV ONE (23:06)
[2022-07-11] MEDS ORDERED: CEFP200T14 PO (00:27)
--- NOTE | 2022-07-11 01:02 | NUR ---
DR MILLER ON PHONE WITH DR SZYMANSKI
--- NOTE | 2022-07-11 01:08 | NUR ---
ALESSIO SENT TO LAB
[2022-07-11] MEDS ORDERED: METRONIDAZOLE 500MG/ NS 100ML 100 ML IV ONE (01:23)
[2022-07-11] MEDS ORDERED: FLAGYL/NS RTU 500 MG/100 ML PIGGYBACK IV ONE (01:30)
[2022-07-11] MEDS ORDERED: IV NS 0.9% 1,000 ML BAG IV ONE (01:30)
[2022-07-11] MEDS ORDERED: MORPHINE SULFATE INJ 4 MG/ML DISP.SYRIN ONE (01:48)
[2022-07-11] MEDS ORDERED: MORPHINE SULFATE INJ 2 MG/ML DISP.SYRIN IV PRN (02:00)
[2022-07-11] MEDS ORDERED: Z GUARD REMEDY 4 OZ OINT TP PRN (02:00)
[2022-07-11] MEDS ORDERED: ONDANSETRON HCL/PF 4 MG/2 ML VIAL IVP PRN (02:00)
[2022-07-11] MEDS ORDERED: MAGNESIUM HYDROXIDE 30 ML UDC PO PRN (02:00)
[2022-07-11] MEDS ORDERED: MAG HYDROX/AL HYDROX/SIMETH 30 ML UDC PO PRN (02:00)
[2022-07-11] MEDS ORDERED: ACETAMINOPHEN 325 MG TABLET PO PRN (02:00)
[2022-07-11] MEDS ORDERED: ZOLPIDEM TARTRATE 5 MG TABLET PO PRN (02:00)
[2022-07-11] MEDS ORDERED: MORPHINE SULFATE INJ 4 MG/ML DISP.SYRIN IV PRN (02:00)
--- NOTE | 2022-07-11 03:15 | NUR ---
PT ARRIVED AT [facility] UNIT ON A GURNEY.
--- NOTE | 2022-07-11 03:20 | NUR ---
MS HEAD OF BIOLOGY NOTE PATIENT ARRIVED AT UNIT ON A GURNEY, ACCOMPANIED BY HER . PT IS ALERT AND ORIENTED, AO X 4. SHE IS ON RA, TOLERATED WELL. NO S/S OF DISTRESS OR SOB. IV ACCESS IS AT HER LEFT AC, # 20G, SL. FLUSHED WELL. IV SITE IS PATENT AND INTACT. INTRODUCED THE PATIENT WITH SURROUNDINGS AND NOTIFIED THE PT THAT SHE IS ON NPO, NOTHING BY MOUTH. PT STATED UNDERSTANDING. SAFETY MEASURES ARE IN PLACED: BED IN LOWEST AND LOCKED POSITION; SIDE RAILS UP X 2; CALL LIGHT AND TABLE ARE IN REACH. WILL MONITOR THE PT AND PROVIDE THE CARE PT NEEDS.
--- NOTE | 2022-07-11 04:36 | NUR ---
[facility] ON DOWNTIME see paper chart patient was brought to inpatient floor 0230
[2022-07-11] MEDS: IV D5/0.45 NACL 1,000 ML IV PRN ×2 (04:43→22:58)
[2022-07-11] MEDS: METRONIDAZOLE 500MG/ NS 100ML 500 MG in PREMIX 1 EA IV SCH ×4 (06:38→23:00)
--- NOTE | 2022-07-11 07:08 | NUR ---
MS RN CLOSING NOTE PATIENT IS SLEEPING IN BED, EASILY BEING AROUSED. SHE IS ALERT AND ORIENTED, AO X 4. PT IS ON RA, TOLERATED WELL. NO S/S OF SOB OR DISTRESS. IV ACCESS IS AT HER L AC, RUNNING ANTIBIOTIC NOW. IV SITE IS PATENT AND INTACT. PT HAS BEEN ON NPO. SAFETY MEASURES ARE IN PLACED: BED IN LOWEST AND LOCKED POSITION; SIDE RAILS UP X 2; CALL LIGHT AND TABLE ARE WITHIN REACH. WILL ENDORSE NEXT SHIFT NURSE FOR CONTINUING PT CARE.
--- NOTE | 2022-07-11 07:29 | NUR ---
MS RN OPENING NOTE RECEIVED PATIENT AWAKE IN BED. A/O X 4, ABLE TO MAKE NEEDS KNOWN. NO C/O PAIN/DISCOMFORT AT THIS TIME. STABLE ON ROOM AIR, NO SIGN OF ACUTE RESPIRATORY DISTRESS NOTED. WITH IV ACCESS ON LAC #20G WITH ONGOING IVF OF D5 1/2 NS AT 75ML/HR, INFUSING WELL. SAFETY MEASURES IN PLACE: BED IN LOWEST AND LOCKED POSITION, SIDE RAILS UP X2, TRAY TABLE AND CALL LIGHT WITHIN EASY REACH. WILL CONTINUE TO MONITOR.
[2022-07-11 08:00] VITALS: BP 110/76
[2022-07-11] MEDS: PANTOPRAZOLE 40 MG VIAL IV SCH (08:31)
[2022-07-11] MEDS ORDERED: HYDR-3972 PO (08:59)
[2022-07-11] MEDS ORDERED: CHOL500052 PO (08:59)
[2022-07-11] MEDS ORDERED: BACL10TA PO (08:59)
[2022-07-11] MEDS ORDERED: ALBU18HF2 IH (08:59)
[2022-07-11] MEDS ORDERED: AMLO-212 PO (08:59)
[2022-07-11] MEDS ORDERED: BUPR-319 PO (08:59)
[2022-07-11] MEDS ORDERED: ALBU0.633 NEB (08:59)
[2022-07-11 16:00] VITALS: BP 137/76
[2022-07-11] MEDS ORDERED: ALBUTEROL FS 2.5 MG/3 ML VIAL.NEB NEB PRN (17:00)
[2022-07-11] MEDS ORDERED: HYDROCODONE/APAP 5/325MG TABLET PO PRN (17:00)
--- NOTE | 2022-07-11 18:40 | NUR ---
MS RN CLOSING NOTE PATIENT RESTING IN BED. A/O X 4, ABLE TO MAKE NEEDS KNOWN. NO C/O PAIN/DISCOMFORT AT THIS TIME. ON ROOM AIR, TOLERATED WELL. WITH IV ACCESS ON LAC #20G WITH ONGOING IVF OF D5 1/2 NS AT 75ML/HR, INFUSING WELL. NEEDS ATTENDED. SAFETY MEASURES IN PLACE: BED IN LOWEST AND LOCKED POSITION, SIDE RAILS UP X2, TRAY TABLE AND CALL LIGHT WITHIN EASY REACH. WILL ENDORSE BATSHEVA TO CELLULAR EQUIPMENT INSTALLER.
--- NOTE | 2022-07-11 19:30 | NUR ---
MS RN OPENING NOTE RECEIVED PATIENT IN BED, WITH HOB ELEVATED, AWAKE, ALERT AND ORIENTED X4. ABLE TO COMMUNICATE NEEDS WITH THE STAFFS. AFEBRILE AND NOT IN ANY FORM OF ACUTE DISTRESS. BREATHING EVEN AND NON LABORED. WITH IV ACCESS ON LAC 20G RUNNING WITH NS AT D5 1/2NS AT 75ML/HR. PATIENT IS NOW ON CLEAR LIQUID DIET ORDERED. SAFETY MEASURES IN PLACE. KEPT BED IN LOCKED AND IN LOW POSITION. SIDE RAILS UP X2. ADVISED TO USE THE CALL LIGHT WHEN IN NEED OF ASSISTANCE.
[2022-07-11] MEDS: HYDROCODONE/APAP 5/325MG TABLET PO PRN (19:56)
[2022-07-11 20:00] VITALS: BP 113/43
[2022-07-11] MEDS: CEFTRIAXONE 1 G in IV D5W 50 ML IV SCH (22:12)
[2022-07-12] MEDS: HYDROCODONE/APAP 5/325MG TABLET PO PRN ×3 (01:57→23:09)
[2022-07-12] MEDS: METRONIDAZOLE 500MG/ NS 100ML 500 MG in PREMIX 1 EA IV SCH ×4 (05:02→23:03)
[2022-07-12 06:14] LABS: BASOPHILS # (AUTO) 0.1 K/uL (0.0-0.2); BASOPHILS % (AUTO) 0.8 % (0.0-2.0); EOSINOPHILS % (AUTO) 1.1 % (0.0-6.0); HEMATOCRIT 40 % (33-45); HEMOGLOBIN 13.5 g/dL (11.5-14.8); LYMPHOCYTES # (AUTO) 2.3 K/uL (0.8-4.8); LYMPHOCYTES % (AUTO) 36.4 % (20.0-44.0); MEAN CORPUSCULAR HGB CONC 34 g/dl (31.0-36.0); MEAN CORPUSCULAR VOLUME 95 fL (82-100); MONOCYTES # (AUTO) 0.5 K/uL (0.1-1.30); MONOCYTES % (AUTO) 8.2 % (2.0-12.0); NEUTROPHILS # (AUTO) 3.3 K/uL (1.8-8.9); NEUTROPHILS % (AUTO) 53.5 % (43.0-81.0); PLATELET COUNT (AUTO) 236 K/uL (150-450); RED BLOOD CELL COUNT(AUTO) 4.18 MIL/uL (4.0-5.2); WHITE BLOOD COUNT (AUTO) 6.2 K/uL (4.3-11.0)
[2022-07-12 06:19] LABS: CALCIUM, SERUM 8.5 mg/dL (8.5-10.1); CREATININE 0.6 mg/dL (0.6-1.3); MAGNESIUM 1.9 mg/dL (1.8-2.4); PHOSPHORUS 4.2 mg/dL (2.5-4.9); POTASSIUM 3.5 mmol/L (3.5-5.1)
--- NOTE | 2022-07-12 06:23 | NUR ---
MS RN CLOSING NOTE PATIENT IN BED, WITH HOB ELEVATED, ASLEEP BUT EASY TO AROUSE AND RESPONSIVE. ABLE TO MAKE NEEDS KNOWN. AFEBRILE AND NOT IN ANY FORM OF ACUTE DISTRESS. BREATHING EVEN AND NON LABORED. WITH IV ACCESS ON LAC 20G RUNNING WITH NS AT D5 1/2NS AT 75ML/HR. MAINTAINED ON CLEAR LIQUID DIET ORDERED. MEDICATED ORDERED. CONTINUOUS ON IV ATB, MONITORED FOR ANY ADVERSE REACTION. SAFETY MEASURES IN PLACE. KEPT BED IN LOCKED AND IN LOW POSITION. SIDE RAILS UP X2. ADVISED TO USE THE CALL LIGHT WHEN IN NEED OF ASSISTANCE. ALL NURSING NEEDS ATTENDED. ENDORSED TO INCOMING SHIFT FOR CONTINUITY OF CARE.
[2022-07-12] MEDS ORDERED: CHOLECALCIFEROL 1,000 UNIT TABLET (VIT D3) PO SCH (07:00)
[2022-07-12] MEDS ORDERED: ALBUTEROL HALF STRENGTH 1.25 MG/3 ML VIAL.NEB NEB PRN (07:00)
--- NOTE | 2022-07-12 07:27 | NUR ---
MS RN OPENING NOTE RECEIVED PATIENT AWAKE IN BED. A/O X 4, ABLE TO MAKE NEEDS KNOWN. NO C/O PAIN/DISCOMFORT AT THIS TIME. ON ROOM AIR, TOLERATING WELL, NO SIGN OF ACUTE RESPIRATORY DISTRESS NOTED. WITH IV ACCESS ON LAC #20G WITH ONGOING IVF OF D5 1/2 NS AT 75ML/HR, INFUSING WELL. SAFETY MEASURES IN PLACE: BED IN LOWEST AND LOCKED POSITION, SIDE RAILS UP X2, TRAY TABLE AND CALL LIGHT WITHIN EASY REACH. WILL CONTINUE TO MONITOR.
[2022-07-12 08:00] VITALS: BP 120/44
[2022-07-12] MEDS: PANTOPRAZOLE 40 MG VIAL IV SCH (08:55)
[2022-07-12] MEDS: BACLOFEN (10 MG) 10 MG TABLET PO SCH (08:55)
[2022-07-12] MEDS: AMLODIPINE BESYLATE 5 MG TABLET PO SCH (08:56)
[2022-07-12] MEDS: BUPROPION XL 150 MG TAB.ER.24 PO SCH (08:56)
--- NOTE | 2022-07-12 13:30 | NUR ---
RN NOTES RUBBER GOODS SUPERVISOR YOVANA IN THE UNIT, REFERRED DIET AND WAS ABLE TO SEE PATIENT. ORDERED TO ADVANCE TO SOFT DIET, CARRIED OUT.
[2022-07-12 16:00] VITALS: BP 139/77
--- NOTE | 2022-07-12 17:19 | NUR ---
RN NOTES PATIENT VERBALIZED THAT HER RIGHT LOWER ABDOMEN TO LOWER BACK IS PAINFUL WITH THE SCALE OF 6/10, NORCO 5-325MG 1 TAB PRN GIVEN AT 1715. WILL CONTINUE TO MONITOR.
--- NOTE | 2022-07-12 19:29 | NUR ---
MS RN OPENING NOTE RECEIVED PATIENT SITTING IN BED, WITH HOB ELEVATED, AWAKE, ALERT AND ORIENTED X4. ABLE TO MAKE NEEDS WITH THE STAFFS. AFEBRILE AND NOT IN ANY FORM OF ACUTE DISTRESS. BREATHING EVEN AND NON LABORED. NO C/O PAIN OR DISCOMFORT AT THIS TIME. WITH IV ACCESS ON LAC 20G RUNNING WITH NS AT D5 1/2NS AT 75ML/HR. SAFETY MEASURES IN PLACE. KEPT BED IN LOCKED AND IN LOW POSITION. SIDE RAILS UP X2. ADVISED TO USE THE CALL LIGHT WHEN IN NEED OF ASSISTANCE.
--- NOTE | 2022-07-12 19:50 | NUR ---
MS RN NOTE PATIENT ASKED TO BE ACCOMPANIED OUTSIDE TO SMOKE. PER PATIENT, SHE'S BEEN A SMOKER AND USUALLY CONSUMES 1 PACK OF CIGARETTE A DAY. BHAKTI WRAY ALREADY SPOKE TO HER THIS MORNING AND SMOKING CESSATION EDUCATION WAS GIVEN. PATIENT WAS STILL INSISTENT DESPITE EXPLAINING RISK AND CONSEQUENCES OF SMOKING AND INFORMING THAT THE HOSPITAL IS A NO SMOKING FACILITY. NOTIFIED CN ABOUT PATIENT'S REQUEST AND PROPER EDUCATION WAS GIVEN. PATIENT VERBALIZED UNDERSTANDING.
[2022-07-12 20:00] VITALS: BP_SYST 142; BP_SYST 144; BP_DIAS 72; BP_DIAS 75
[2022-07-12] MEDS: CEFTRIAXONE 1 G in IV D5W 50 ML IV SCH (22:07)
[2022-07-13] MEDS: METRONIDAZOLE 500MG/ NS 100ML 500 MG in PREMIX 1 EA IV SCH ×2 (05:07→12:28)
[2022-07-13] MEDS: IV D5/0.45 NACL 1,000 ML IV PRN (05:08)
--- NOTE | 2022-07-13 06:21 | NUR ---
MS RN CLOSING NOTE PATIENT IN BED, WITH HOB ELEVATED, ASLEEP BUT EASY TO AROUSE AND RESPONSIVE. ABLE TO COMMUNICATE NEEDS WITH THE STAFFS. AFEBRILE AND NOT IN ANY FORM OF ACUTE DISTRESS. BREATHING EVEN AND NON LABORED. WITH IV ACCESS ON LAC 20G RUNNING WITH NS AT D5 1/2NS AT 75ML/HR. DUE MEDS GIVEN. CONTINUOUS ON IV ATB, MONITORED FOR ANY ADVERSE REACTION. SAFETY MEASURES IN PLACE. KEPT BED IN LOCKED AND IN LOW POSITION. SIDE RAILS UP X2. ADVISED TO USE THE CALL LIGHT WHEN IN NEED OF ASSISTANCE. ALL NURSING NEEDS ATTENDED. ENDORSED TO INCOMING SHIFT FOR CONTINUITY OF CARE.
[2022-07-13 07:00] VITALS: BP 128/81
[2022-07-13] MEDS: PANTOPRAZOLE 40 MG VIAL IV SCH (08:29)
[2022-07-13] MEDS: BACLOFEN (10 MG) 10 MG TABLET PO SCH (08:29)
[2022-07-13 08:30] VITALS: BP 128/81
[2022-07-13] MEDS: BUPROPION XL 150 MG TAB.ER.24 PO SCH (08:30)
[2022-07-13] MEDS: AMLODIPINE BESYLATE 5 MG TABLET PO SCH (08:30)
[2022-07-13] MEDS ORDERED: TRAM50TA2 PO (12:37)
[2022-07-13] MEDS ORDERED: CIPR-262 PO (12:37)
[2022-07-13] MEDS ORDERED: METR500T PO (12:37)
--- NOTE | 2022-07-13 14:00 | NUR ---
IT COMPLIANCE MANAGER NOTES PATIENT WAS SEEN BY YOVANA WRAY - DYE JIG OPERATOR IS WITH ORDER FOR DISCHARGE TODAY , DC/ INSTRUCTIONS PROVIDED AND REGARDING MEDICATIONS TO CONTINUE , FOLLOW UP WITH DR MILLER IN 1 WEEK AND PHONE NUMBER GIVEN , TO CALL 911 IN CASE OF EMERGENCY , AND PATIENT UNDERSTOOD THE INSTRUCTIONS , ALL BELONGINGS WERE TAKEN AND FORM WAS SIGNED , PATIENT SAID SHES GONNA TAKE UBER TO GO HOME BUT SHE WAS PICKED UP BY FRIEND , IV ACCESS AND IV BAND REMOVED , ACCOMPANIED TO THE LOBBY AND PATIENT LEFT IN A STABLE CONDITION .
== END 2022-07-13 14:25 | disposition home or self-care (01) | DRG 372 ==
LOC: ER 18:54 → MED 07-11 01:38
PROVIDERS: ADMIT Nurse Practitioner Acute Care; ATTEND Nurse Practitioner Acute Care
DX: K35.30 Acute appendicitis with localized peritonitis, without perforation or gangrene (principal); N39.0 Urinary tract infection, site not specified; K57.30 Diverticulosis of large intestine without perforation or abscess without bleeding; F17.210 Nicotine dependence, cigarettes, uncomplicated; I10 Essential (primary) hypertension; J45.909 Unspecified asthma, uncomplicated; D73.89 Other diseases of spleen; Z90.49 Acquired absence of other specified parts of digestive tract; B96.89 Other specified bacterial agents as the cause of diseases classified elsewhere
CPT/HCPCS: 36415; 74178; 80048-TC; 80076-TC; 81001; 83690-TC; 83735-TC; 84100-TC; 85025-TC; 87081-TC; 87086-TC; A4216; A4223; C9113; G0378; J0696; J2270; J3490; J7030; J7050; J7060; Q9967

== ENCOUNTER 2022-07-14 01:34 | Inpatient (IN) | payer OTHER ==
[~2022-07-14] VITALS: Ht 157.5 cm; Wt 77.1 kg
[~2022-07-14 01:34] MED LIST changes: +ALBU0.633 NEB; +ALBU18HF2 IH; +AMLO-212 PO; -ASPI-1169 PO; -ATOR10TA PO; +BACL10TA PO; +BUPR-319 PO; +CHOL500052 PO; +CIPR-262 PO; +HYDR-3972 PO; -LOSA50TA3 PO; +METR500T PO; +TRAM50TA2 PO
--- NOTE | 2022-07-14 01:50 | NUR ---
[id number] FROM HOME C/O LOWER ABD PAIN X2 WEEKS +N/V. PATIENT WAS BEING DISCHARGED [facility] FROM [facility] AND WAS SENT HOME FOR OBSERVATION WITH ANTIBIOTIC. TODAY THE PAIN IS INTOLERABLE THAT SHE DECIDED TO COME TO HOSP. PLACED COMFORTABLY IN BED.PAIN SCALE 8/10. VITALS CHECKED.
--- NOTE | 2022-07-14 01:55 | NUR ---
DR. WOO GONCALVES AT PT'S BEDSIDE FOR EVAL
--- NOTE | 2022-07-14 01:58 | NUR ---
URINE COLLECTED AND SENT TO LAB
[2022-07-14] MEDS ORDERED: IV NS 0.9% 1,000 ML BAG IV ONE (02:00)
[2022-07-14] MEDS ORDERED: MORPHINE SULFATE INJ 2 MG/ML DISP.SYRIN IV ONE ×2 (02:00→08:30)
[2022-07-14] MEDS ORDERED: ONDANSETRON HCL/PF 4 MG/2 ML VIAL IVP ONE (02:00)
--- NOTE | 2022-07-14 02:11 | NUR ---
IV TASHI INSERTED ON LEFT FA G20. BLOOD DRAWN AND SENT TO LAB
--- NOTE | 2022-07-14 02:12 | NUR ---
COVID SWAB DONE AND SENT TO LAB
[2022-07-14] MEDS ORDERED: ONDANSETRON HCL/PF 4 MG/2 ML VIAL ONE (02:13)
[2022-07-14] MEDS ORDERED: MORPHINE SULFATE INJ 4 MG/ML DISP.SYRIN ONE (02:13)
[2022-07-14 02:27] LABS: BASOPHILS % (AUTO) 0.4 % (0.0-2.0); EOSINOPHILS % (AUTO) 0.8 % (0.0-6.0); HEMATOCRIT 45 % (33-45); HEMOGLOBIN 14.9 g/dL (11.5-14.8); LYMPHOCYTES # (AUTO) 1.8 K/uL (0.8-4.8); LYMPHOCYTES % (AUTO) 15.9 % (20.0-44.0); MEAN CORPUSCULAR HGB CONC 34 g/dl (31.0-36.0); MEAN CORPUSCULAR VOLUME 95 fL (82-100); MONOCYTES # (AUTO) 0.9 K/uL (0.1-1.30); MONOCYTES % (AUTO) 7.8 % (2.0-12.0); NEUTROPHILS # (AUTO) 8.4 K/uL (1.8-8.9); NEUTROPHILS % (AUTO) 75.1 % (43.0-81.0); PLATELET COUNT (AUTO) 266 K/uL (150-450); RED BLOOD CELL COUNT(AUTO) 4.69 MIL/uL (4.0-5.2); WHITE BLOOD COUNT (AUTO) 11.1 K/uL (4.3-11.0)
[2022-07-14] MEDS ORDERED: IV NS 0.9% 250 ML IV ONE (02:39)
[2022-07-14] MEDS ORDERED: CT SWABBABLE VALVE TRANS SET 1 EA INFUS.SET MC ONE (02:39)
[2022-07-14] MEDS ORDERED: IOHEXOL-300 100 ML VIAL IV ONE (02:39)
[2022-07-14 02:45] LABS: CALCIUM, SERUM 8.9 mg/dL (8.5-10.1); CREATININE 0.8 mg/dL (0.6-1.3); POTASSIUM 3.4 mmol/L (3.5-5.1)
[2022-07-14 02:51] LABS: ALBUMIN 3.7 g/dL (3.4-5.0); BILIRUBIN,DIRECT 0.2 mg/dL (0.0-0.2); BILIRUBIN,TOTAL 0.5 mg/dL (0.2-1.0); TOTAL PROTEIN, SERUM 7.4 g/dL (6.4-8.2)
--- NOTE | 2022-07-14 03:13 | NUR ---
BROUGHT TO CT DEPT
[2022-07-14 03:25] LABS: BILIRUBIN,URINE NEGATIVE (NEGATIVE); COLOR,URINE YELLOW (YELLOW); LEUKOCYTE ESTERASE ,URINE NEGATIVE (NEGATIVE); NITRITE, URINE NEGATIVE (NEGATIVE); PROTEIN,URINE NEGATIVE (NEGATIVE); UGLUCOSE NEGATIVE (NEGATIVE); UROBILINOGEN,URINE 0.2 EU/dL (0.2)
--- NOTE | 2022-07-14 03:29 | NUR ---
CAME BACK FROM CT DEPT
[2022-07-14 03:36] LABS: BACTERIA,URINE Rare /HPF (None Seen); SQUAMOUS EPITHELIAL CELL,UR Many /HPF (None Seen); WBC,URINE 0-2 /HPF (0-3)
--- NOTE | 2022-07-14 04:30 | NUR ---
PATIENT HAS APPROVAL FOR ADMISSION. PT AND MADE AWARE. WAITING FOR CT SCAN REPORT TO COME OUT SO ER MD CAN PRESENT.
--- NOTE | 2022-07-14 07:24 | NUR ---
REPORT GIVEN TO GIUSEPPE MERRITT
--- NOTE | 2022-07-14 07:25 | NUR ---
Received pt from [facility] PT ASLEEPY RESPIRATION SPONT AND EASY
[2022-07-14] MEDS: ENOXAPARIN SODIUM 40 MG/0.4 ML DISP.SYRIN SQ SCH (07:30)
[2022-07-14] MEDS ORDERED: ACETAMINOPHEN 325 MG TABLET PO PRN (07:30)
[2022-07-14] MEDS ORDERED: MORPHINE SULFATE INJ 2 MG/ML DISP.SYRIN IV PRN (07:30)
[2022-07-14] MEDS ORDERED: hydrALAZINE HCL IV 20 MG VIAL IV PRN (07:30)
[2022-07-14] MEDS ORDERED: ONDANSETRON HCL/PF 4 MG/2 ML VIAL IVP PRN (07:30)
--- NOTE | 2022-07-14 07:56 | NUR ---
DR. LOUIS SPEAKING WITH DR. PIERRE.
[2022-07-14] MEDS ORDERED: CEFTRIAXONE 1 G in IV D5W 50 ML IV ONE (08:00)
[2022-07-14] MEDS ORDERED: IV NS 0.9% 1,000 ML IV ONE (08:00)
[2022-07-14] MEDS ORDERED: FLAGYL/NS RTU 500 MG/100 ML PIGGYBACK IV ONE (09:00)
[2022-07-14] MEDS: IV NS 0.9% 1,000 ML IV SCH ×2 (09:28→19:58)
--- NOTE | 2022-07-14 10:13 | NUR ---
HAND OFF LEIDA.Monico RN TO ROOM 308 VIA GARNY STABLE VS AWAKE AND ALERT
[2022-07-14] MEDS ORDERED: CEFEPIME 2 GM in IV D5W 100 ML IV SCH (11:00)
--- NOTE | 2022-07-14 11:20 | NUR ---
TO ROOM 308
--- NOTE | 2022-07-14 11:23 | NUR ---
RN MS NOTES RECEIVED PT FROM E.R. STAFF VIA ADINA, PT IS AWAKE, ALERT AND ORIENTED, NO COMPLAINT OF PAIN OR ANY DISCOMFORT AT THIS TIME, BREATHING PATTERN NORMAL, ROOM SET UP ORIENTATION PROVIDED TO PT, VERBALIZED UNDERSTANDING, REPORT RECEIVED FROM E.R. NURSE SHAINA, APRIL VICE PRESIDENT OF INSTRUCTION, NO ATB GIVEN AT THE E.R. VITALS TAKEN AND RECORDED, KEPT PT NPO AND WILL OBTAIN CONSENT FOR SURGERY TODAY AT 1300, CALL LIGHT WITHIN REACH.
[2022-07-14 11:30] VITALS: BP_SYST 135; BP_SYST 136; BP_DIAS 60
--- NOTE | 2022-07-14 11:40 | NUR ---
RN MS NOTES PT SIGNED ALL CONSENTS, CHECKLIST DONE.
[2022-07-14] MEDS: PIPERACILLIN /TAZOBACTAM 3.375 G in IV D5W 50 ML IV SCH ×2 (12:00→17:47)
--- NOTE | 2022-07-14 12:30 | NUR ---
RN MS NOTES PT AWAKE, ALERT AND ORIENTED, NO COMPLAINT AT THIS TIME, ABLE TO AMBULATE TO THE BATHROOM WITH STEADY GAIT, PICKED UP BY O.R. STAFF VIA BED, LEFT IN STABLE CONDITION.
[2022-07-14] MEDS ORDERED: BUPIVACAINE 0.5 % PF 150 MG/30 ML VIAL ONE ×2 (12:41→12:48)
[2022-07-14] MEDS ORDERED: FENTANYL PF 100MCG/2ML AMPUL ONE (12:47)
[2022-07-14] MEDS ORDERED: FAMOTIDINE/PF INJ 20 MG/2 ML VIAL IV ONE (12:48)
[2022-07-14] MEDS ORDERED: ROCURONIUM BROMIDE 50 MG/5 ML ONE (12:48)
--- NOTE | 2022-07-14 12:52 | NUR ---
RN MS NOTES UNABLE TO GIVE ZOSYN IV, PT PICKED UP FOR SURGERY.
--- NOTE | 2022-07-14 14:12 | NUR ---
RN MS NOTES PT STILL IN O.R., PT CARE AND REPORT HANDED OVER TO MINDY CHIN FOR CONTINUITY OF CARE.
--- NOTE | 2022-07-14 14:15 | NUR ---
RECIEVED REPORT FROM DANETTE/GIUSEPPE.
[2022-07-14] MEDS ORDERED: ALBUTEROL FS 2.5 MG/3 ML VIAL.NEB NEB PRN (14:30)
--- NOTE | 2022-07-14 15:15 | NUR ---
PATIENT BACK FROM OR, REMANS AO X 4. ALL VITAL SIGNS ARE STABLE, AND GIVEN MORPHINE FOR PAIN, WILL CONTINUE TO MONITOR.
[2022-07-14 16:00] VITALS: BP 121/64
--- NOTE | 2022-07-14 16:40 | NUR ---
PATIENT C/O POST SURGERY ABD PAIN, NEW ORDER MORPHINE 4 MG IV PRN Q 2. NOTED AND CARRY OUT.
[2022-07-14] MEDS: MORPHINE SULFATE INJ 4 MG/ML DISP.SYRIN IV PRN (17:47)
--- NOTE | 2022-07-14 18:00 | NUR ---
RN CLOSING NOTE PATIENT RESTING IN BED. IN NO ACUTE DISTRESS OBSERVED. RESPIRATORY EVEN AND UNLABORED IN ROOM AIR, NO SOB OR DESATURATION NOTED. SKIN IS WARM TO TOUCH KEEP CLEAN/DRY. KEPT ELEVATED HOB FOR ENSURE AIRWAY/ASPIRATION PRECAUTION, AND LOWEST BED POSITION. BED ALARM IS ON AT ALL THE TIME FOR SAFETY. CALL LIGHT WITHIN REACH, WILL ENDORSE MEN'S AND BOYS' CLOTHING SALESPERSON.
[2022-07-14] MEDS ORDERED: Potassium Chloride 20 MEQ in IV D5/0.45 NACL 1,000 ML IV SCH (18:30)
--- NOTE | 2022-07-14 19:30 | NUR ---
RN Opening Notes Received pt in bed, awake with family at bedside. AOx4, able to make needs known. On RA and tolerating well. No SOB noted. No s/sx of respiratory distress noted. IV Access in RFA #20G running D5LR with 20 mEQ KCL @ 60 mL/hr. Safety precautions in place: bed in lowest, locked position, siderails upX2, and brakes on. Table and call light within reach. All needs met at this time.
[2022-07-14] MEDS: Potassium Chloride 20 MEQ in IV D5 LR 1,000 ML IV SCH (19:52)
[2022-07-14 20:00] VITALS: BP 126/68
[2022-07-14] MEDS: HYDROCODONE/APAP 5/325MG TABLET PO PRN (20:03)
--- NOTE | 2022-07-14 20:04 | NUR ---
RN Notes Administered [place] for pain 11/19. VS WNL.
--- NOTE | 2022-07-14 20:15 | NUR ---
RN Notes Patient wanted to go smoke. Offered patient nicotine patch but she said "those do nothing for me." Patient signed consent for smoking and she said "I just need to smoke." Charge nurse, Enma, made aware.
[2022-07-15] MEDS: MORPHINE SULFATE INJ 4 MG/ML DISP.SYRIN IV PRN ×3 (00:05→20:23)
[2022-07-15] MEDS: PIPERACILLIN /TAZOBACTAM 3.375 G in IV D5W 50 ML IV SCH ×4 (00:05→18:50)
[2022-07-15 06:45] LABS: BASOPHILS # (AUTO) 0.1 K/uL (0.0-0.2); BASOPHILS % (AUTO) 0.4 % (0.0-2.0); EOSINOPHILS % (AUTO) 0.4 % (0.0-6.0); HEMATOCRIT 44 % (33-45); HEMOGLOBIN 13.9 g/dL (11.5-14.8); LYMPHOCYTES # (AUTO) 1.3 K/uL (0.8-4.8); LYMPHOCYTES % (AUTO) 10.7 % (20.0-44.0); MEAN CORPUSCULAR HGB CONC 31 g/dl (31.0-36.0); MEAN CORPUSCULAR VOLUME 103 fL (82-100); MONOCYTES % (AUTO) 8.2 % (2.0-12.0); NEUTROPHILS # (AUTO) 9.8 K/uL (1.8-8.9); NEUTROPHILS % (AUTO) 80.3 % (43.0-81.0); PLATELET COUNT (AUTO) 222 K/uL (150-450); RED BLOOD CELL COUNT(AUTO) 4.28 MIL/uL (4.0-5.2); WHITE BLOOD COUNT (AUTO) 12.2 K/uL (4.3-11.0)
[2022-07-15 06:47] LABS: ALBUMIN 3.1 g/dL (3.4-5.0); BILIRUBIN,DIRECT 0.1 mg/dL (0.0-0.2); BILIRUBIN,TOTAL 0.2 mg/dL (0.2-1.0); CALCIUM, SERUM 8.8 mg/dL (8.5-10.1); CREATININE 0.7 mg/dL (0.6-1.3); MAGNESIUM 2.4 mg/dL (1.8-2.4); PHOSPHORUS 2.8 mg/dL (2.5-4.9); POTASSIUM 4.1 mmol/L (3.5-5.1); TOTAL PROTEIN, SERUM 6.6 g/dL (6.4-8.2)
--- NOTE | 2022-07-15 07:03 | NUR ---
RN Closing Notes Pt in bed, awake with family at bedside. AOx4, able to make needs known. On RA and tolerating well. No SOB noted. No s/sx of respiratory distress noted. IV Access in RFA #20G running D5LR with 20 mEQ KCL @ 60 mL/hr. All orders carried out. All needs met. Pt kept clean and dry. Treated pain throughout shift. Safety precautions in place: bed in lowest, locked position, siderails upX2, and brakes on. Table and call light within reach. Will endorse to oncoming shift for BATSHEVA.
--- NOTE | 2022-07-15 07:31 | NUR ---
MS RN OPENING NOTE Received pt in bed, awake, A and O x 4, able to make needs known. Pt is on RA and tolerating well. No SOB noted. No s/sx of respiratory distress noted. IV Access in left wrist #20G running D5LR with 20 mEQ KCL @ 60 mL/hr. Safety precautions in place: bed in lowest, locked position; bed side rails up X 2; bed brakes on;and table and call perez/light within reach. Surgical dressing to abdomen is clean, dry, and intact. States pain at a tolerable level of intermittent 3 [id number] at this time. Will continue to monitor and care for patient per hospitalist's POC.
[2022-07-15] MEDS: ENOXAPARIN SODIUM 40 MG/0.4 ML DISP.SYRIN SQ SCH (08:04)
[2022-07-15 08:29] VITALS: BP 116/69
[2022-07-15] MEDS: IV NS 0.9% 1,000 ML IV SCH ×2 (10:10→22:38)
[2022-07-15] MEDS: Potassium Chloride 20 MEQ in IV D5 LR 1,000 ML IV SCH (11:50)
[2022-07-15 16:22] VITALS: BP_SYST 115; BP_SYST 116; BP_DIAS 69
[2022-07-15] MEDS: HYDROCODONE/APAP 5/325MG TABLET PO PRN (16:34)
--- NOTE | 2022-07-15 19:02 | NUR ---
RN CLOSING NOTE PATIENT RESTING IN BED. IN NO ACUTE DISTRESS OBSERVED. RESPIRATORY EVEN AND UNLABORED ON ROOM AIR, NO SOB NOR DESATURATION NOTED. SKIN IS WARM TO TOUCH, CLEAN, AND DRY. SAFETY PRECAUTIONS MAINTAINED: LOWEST BED POSITION; BED SIDE RAILS UP X 2; BED BRAKES ON; AND CALL OVERTON/LIGHT WITHIN PATIENT'S REACH. PATIENT HAS NEW piv CATHETER IN RIGHT FOREARM, # 20 GAUGE, PATENT, RECIVING IV FLUID OF D5NS WITH 20 MEQ OF KCl INFUSING AT A RATE OF 60 mLs /hr. PT COMPLIANT WITH TAKING ALL HER MEDICATIONS AND ALL OF HER MEDICAL TREATMENT. MEDICATED X 2 FOR PAIN WITH EFFECTIVE RELIEF. WILL ENDORSE DUST CONTROL ENGINEER NURSEGHADA, FOR BATSHEVA.
--- NOTE | 2022-07-15 19:34 | NUR ---
RN Opening Notes Received pt in bed, awake with family at bedside. AOx4, able to make needs known. On RA and tolerating well. No SOB noted. No s/sx of respiratory distress noted. IV Access in LFA #20G running D5LR with 20 mEQ KCL @ 60 mL/hr. Safety precautions in place: bed in lowest, locked position, siderails upX2, and brakes on. Table and call light within reach. All needs met at this time.
[2022-07-15 20:00] VITALS: BP 124/65
--- NOTE | 2022-07-15 20:23 | NUR ---
RN Notes Administered morphine for pain. VS WNL.
[2022-07-16] MEDS: PIPERACILLIN /TAZOBACTAM 3.375 G in IV D5W 50 ML IV SCH ×2 (00:10→05:27)
--- NOTE | 2022-07-16 04:38 | NUR ---
RN Notes Discontinued IVF per MD order.
[2022-07-16] MEDS: MORPHINE SULFATE INJ 4 MG/ML DISP.SYRIN IV PRN ×2 (05:32→08:09)
[2022-07-16 05:43] LABS: BASOPHILS % (AUTO) 0.3 % (0.0-2.0); EOSINOPHILS % (AUTO) 2.5 % (0.0-6.0); HEMATOCRIT 41 % (33-45); HEMOGLOBIN 13.9 g/dL (11.5-14.8); LYMPHOCYTES # (AUTO) 2.4 K/uL (0.8-4.8); LYMPHOCYTES % (AUTO) 23.5 % (20.0-44.0); MEAN CORPUSCULAR HGB CONC 34 g/dl (31.0-36.0); MEAN CORPUSCULAR VOLUME 96 fL (82-100); MONOCYTES # (AUTO) 0.9 K/uL (0.1-1.30); MONOCYTES % (AUTO) 8.4 % (2.0-12.0); NEUTROPHILS # (AUTO) 6.6 K/uL (1.8-8.9); NEUTROPHILS % (AUTO) 65.3 % (43.0-81.0); PLATELET COUNT (AUTO) 238 K/uL (150-450); RED BLOOD CELL COUNT(AUTO) 4.26 MIL/uL (4.0-5.2); WHITE BLOOD COUNT (AUTO) 10.1 K/uL (4.3-11.0)
[2022-07-16 05:55] LABS: CALCIUM, SERUM 8.6 mg/dL (8.5-10.1); CREATININE 0.8 mg/dL (0.6-1.3)
--- NOTE | 2022-07-16 06:02 | NUR ---
RN Notes Administered morphine for pain 12/20 per MD order. VS WNL.
--- NOTE | 2022-07-16 06:45 | NUR ---
RN Closing Notes Pt in bed, asleep, awakens to verbal stimuli. AOx4, able to make needs known. On RA and tolerating well. No SOB noted. No s/sx of respiratory distress noted. IV Access in RFA #20G. IV is intact, patent, and flushing well. All orders carried out. All needs met. Pt kept clean and dry. Treated pain throughout shift. Safety precautions in place: bed in lowest, locked position, siderails upX2, and brakes on. Table and call light within reach. Will endorse to oncoming shift for BATSHEVA.
--- NOTE | 2022-07-16 07:05 | NUR ---
RN OPENING NOTE- PATIENT RESTING IN BED. IN NO ACUTE DISTRESS. BREATHING EVEN AND NON-LABORED, ON ROOM AIR, NO SOB SKIN IS WARM TO TOUCH, CLEAN, AND DRY. SURGICAL DRESSING TO LOWER ABD DRY INTACT. SAFETY PRECAUTIONS MAINTAINED: LOWEST BED POSITION; BED SIDE RAILS UP X 2; BED LOCKED; AND CALL OVERTON/LIGHT WITHIN PATIENT'S REACH. MONITOR / ASSIST
[2022-07-16] MEDS: ENOXAPARIN SODIUM 40 MG/0.4 ML DISP.SYRIN SQ SCH (08:00)
[2022-07-16 08:09] VITALS: BP 132/59
[2022-07-16] MEDS ORDERED: AMOX-430 PO (09:32)
[2022-07-16] MEDS: HYDROCODONE/APAP 5/325MG TABLET PO PRN (09:34)
[2022-07-16] MEDS ORDERED: DOCU-141 PO (11:02)
[2022-07-16] MEDS ORDERED: HYDR-3973 PO (11:02)
--- NOTE | 2022-07-16 11:22 | NUR ---
RN DC NOTE- PT DC AT THIS TIME. WOUND / SURGICAL INCISION CARE COMPLETED. NO EXUDATE, NO ERYTHEMA, JOSE ANTONIO INTACT WOUND EDGES WELL-APPROXIMATED, NO DEHISCENCE PRESENT. CLEAN DRESSING APPLIED. IV SITE REMOVED, ID WRISTBAND REMOVED. AFTERCARE INSTRUCTIONS REVIEWED AND UNDERSTOOD, ESCORTED OFF UNIT BY STAFF TO [facility]
== END 2022-07-16 11:20 | disposition home or self-care (01) | DRG 342 ==
LOC: ER 01:41 → TRANSITION 09:05 → MED 09:57
PROVIDERS: ADMIT Nurse Practitioner Acute Care; ATTEND Nurse Practitioner Acute Care
PROC: 0DTJ4ZZ Resection of Appendix, Percutaneous Endoscopic Approach (ICD-10-PCS; principal; 2022-07-14)
DX: K35.80 Unspecified acute appendicitis (principal); N39.0 Urinary tract infection, site not specified; K66.0 Peritoneal adhesions (postprocedural) (postinfection); D73.89 Other diseases of spleen; F17.210 Nicotine dependence, cigarettes, uncomplicated; I10 Essential (primary) hypertension; J45.909 Unspecified asthma, uncomplicated; K57.30 Diverticulosis of large intestine without perforation or abscess without bleeding; Z90.49 Acquired absence of other specified parts of digestive tract; B96.89 Other specified bacterial agents as the cause of diseases classified elsewhere
CPT/HCPCS: 36415; 80048-TC; 80053-TC; 80076-TC; 81001; 83605-TC; 83690-TC; 83735-TC; 84100-TC; 85025-TC; 85730-TC; 87040-TC; 87081-TC; 88304-TC; A4223; C9803; G0378; J0690; J0692; J0696; J1100; J1650; J2270; J2370; J2405; J2543; J2704; J2765; J3010; J3480; J3490; J7030; J7050; J7060; Q9967

== ENCOUNTER 2023-07-08 18:46 | Emergency (ER) | payer BC, MEDICAID ==
[~2023-07-08] VITALS: Ht 157.5 cm; Wt 81.6 kg
[~2023-07-08 18:46] MED LIST changes: +AMOX-430 PO; -CIPR-262 PO; +DOCU-141 PO; +HYDR-3973 PO; -METR500T PO
[2023-07-08 18:57] VITALS: TEMP 97.7
[2023-07-08] MEDS ORDERED: predniSONE 20 MG TABLET ONE (21:20)
[2023-07-08] MEDS: predniSONE 50 MG TABLET PO ONE (21:24)
[2023-07-08 21:31] LABS: BASOPHILS % (AUTO) 0.4 % (0.0-2.0); EOSINOPHILS % (AUTO) 0.5 % (0.0-6.0); HEMATOCRIT 43 % (33-45); HEMOGLOBIN 14.4 g/dL (11.5-14.8); LYMPHOCYTES # (AUTO) 1.6 K/uL (0.8-4.8); LYMPHOCYTES % (AUTO) 17.9 % (20.0-44.0); MEAN CORPUSCULAR HEMOGLOBIN 33 PG (26.0-33.0); MEAN CORPUSCULAR HGB CONC 34 g/dl (31.0-36.0); MEAN CORPUSCULAR VOLUME 97 fL (82-100); MONOCYTES # (AUTO) 0.5 K/uL (0.1-1.30); MONOCYTES % (AUTO) 6.2 % (2.0-12.0); NEUTROPHILS # (AUTO) 6.6 K/uL (1.8-8.9); PLATELET COUNT (AUTO) 289 K/uL (150-450); RED BLOOD CELL COUNT(AUTO) 4.41 MIL/uL (4.0-5.2); RED CELL DISTRIBUTION WIDTH 12.5 % (11.5-15.0); WHITE BLOOD COUNT (AUTO) 8.8 K/uL (4.3-11.0)
[2023-07-08 21:36] LABS: CALCIUM, SERUM 9.4 mg/dL (8.5-10.1); CREATININE 0.8 mg/dL (0.6-1.3); POTASSIUM 4.2 mmol/L (3.5-5.1)
[2023-07-08 21:40] VITALS: O2SAT 99
[2023-07-08] MEDS: ALBUTEROL FS 2.5 MG/0.5 ML VIAL.NEB NEB ONE (21:40)
[2023-07-08] MEDS: IPRATROPIUM NEB FS 0.5 MG/2.5 ML AMPUL.NEB NEB ONE (21:40)
[2023-07-08] MEDS ORDERED: ALBUTEROL FS 2.5 MG/3 ML VIAL.NEB ONE (21:42)
[2023-07-08] MEDS ORDERED: IPRATROPIUM NEB FS 0.5 MG/2.5 ML AMPUL.NEB ONE (21:42)
[2023-07-08 21:56] VITALS: O2SAT 99
[2023-07-08] MEDS ORDERED: PRED20TA PO (22:22)
[2023-07-08] MEDS ORDERED: AZIT250T13 PO (22:22)
[2023-07-08] MEDS ORDERED: ALBU18HF2 INH (22:57)
[2023-07-08] MEDS ORDERED: ALBU2.5V13 NEB (22:57)
[2023-07-08 23:07] VITALS: BP 135/78; O2SAT 98
== END 2023-07-09 01:00 | disposition home or self-care (01) ==
LOC: ER 18:48
DX: J18.9 Pneumonia, unspecified organism (principal); J45.909 Unspecified asthma, uncomplicated; J06.9 Acute upper respiratory infection, unspecified; I10 Essential (primary) hypertension; F17.200 Nicotine dependence, unspecified, uncomplicated; Z90.49 Acquired absence of other specified parts of digestive tract; Z98.890 Other specified postprocedural states; Z79.899 Other long term (current) drug therapy; Z20.822 Contact with and (suspected) exposure to COVID-19
CPT/HCPCS: 99284; 71046; 87426; 85025; 80048; 36415; 94640; J7512